=== PATIENT | male | born 1955 | race Caucasian/White ===

== ENCOUNTER 2024-04-07 07:42 | Emergency (ER) | payer OTHER, SELFPAY ==
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
[2024-04-07 07:37] VITALS: BP 132/64; PULSE 70; RESP 20; TEMP 36.4; O2SAT 100
[2024-04-07 07:50] LABS: Glucose Point of Care 87 mg/dl (65-105)
[2024-04-07 09:12] LABS: Glucose Point of Care 63 mg/dl (65-105)
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
[2024-04-07 10:46] LABS: Glucose Point of Care 183 mg/dl (65-105)
== END 2024-04-07 11:22 | disposition home or self-care (01) ==
PROVIDERS: Emergency Provider Emergency Medicine
DX: S00.31XA Abrasion of nose, initial encounter (principal); E11.649 Type 2 diabetes mellitus with hypoglycemia without coma; I50.9 Heart failure, unspecified; I25.10 Atherosclerotic heart disease of native coronary artery without angina pectoris; Z79.4 Long term (current) use of insulin; M50.322 Other cervical disc degeneration at C5-C6 level; V49.9XXA Car occupant (driver) (passenger) injured in unspecified traffic accident, initial encounter
CPT/HCPCS: 70450; 72125; 82948; 99284